=== PATIENT | female | born 2000 | race Native Hawaiian/Other Pacific Islander ===

== ENCOUNTER 2021-09-04 16:54 | Emergency (ER) | payer OTHER ==
[~2021-09-04] VITALS: Ht 157 cm; Wt 72.0 kg
--- NOTE | 2021-09-04 17:14 | ED Upper Extremity ---
General Chief Complaint: Upper Extremity Stated Complaint: L ARM/WRIST PAIN FELL Nursing Triage Note: PT AMB TO TRIAGE CO OF R WRIST PAIN, PT FELL ON WRIST ON WEDNESDAY Source: patient Exam Limitations: no limitations (LORI STEWART APRN) History of Present Illness Date Seen by Provider: Sep 04, 2021 Time Seen by Provider: 17:12 Initial Comments To ER by EMS from home with reports of right wrist pain worse with flexion and extension as well as right elbow pain worse with flexion and extension ever since she fell landing on this 48 hours ago. Onset: just prior to arrival Severity: moderate Pain/Injury Location: right elbow, right wrist Method of Injury: fell Modifying Factors: Worse With Movement (LORI STEWART APRN) Allergies and Home Medications Allergies Coded Allergies: No Known Drug Allergies (Unverified , 09/04/21) Patient Home Medication List Home Medication List Reviewed: Yes (LORI STEWART APRN) Review of Systems Constitutional: see HPI EENTM: see HPI Respiratory: no symptoms reported Cardiovascular: no symptoms reported Genitourinary: no symptoms reported Musculoskeletal: see HPI Skin: no symptoms reported Psychiatric/Neurological: No Symptoms Reported (LORI STEWART APRN) Past Rouizsu-Slavrc-Lnmnzt Hx Patient Social History Tobacco Use?: No Substance use?: No Alcohol Use?: No Pt feels they are or have been: No (LORI STEWART APRN) Physical Exam Vital Signs Vital Signs - First Documented 09/04/21 17:00 Temp 36.8 Pulse 68 Resp 18 B/P (MAP) 134/87 (103) Pulse Ox 96 (LIZ SOTO MD) Vital Signs Capillary Refill : Less Than 3 Seconds (LORI STEWART APRN) Height, Weight, BMI Height: '" Weight: lbs. oz. kg; 29.00 BMI Method: General Appearance: WD/WN, no apparent distress HEENT: PERRL/EOMI, normal ENT inspection Respiratory: no respiratory distress, no accessory muscle use Gastrointestinal: normal bowel sounds, non tender Shoulder: normal inspection, non-tender Elbow/Forearm: normal inspection, Right, limited ROM Wrist: Yes normal inspection, Yes pain, Yes soft tissue tenderness Hand: normal inspection, non-tender Neurologic/Psychiatric: alert, normal mood/affect, oriented x 3 Skin: normal color, warm/dry (LORI STEWART APRN) Progress/Results/Core Measures Results/Orders Blood Pressure Mean: 103 Departure Impression Primary Impression: Contusion of wrist Disposition: 01 HOME, SELF-CARE Condition: Stable Departure-Patient Inst. Decision time for Depature: 17:14 (LORI STEWART APRN) Referrals: NO,LOCAL PHYSICIAN (PCP/Family) Primary Care Physician Patient Instructions: Wrist Sprain (DC) Add. Discharge Instructions: 1. Tylenol and ibuprofen for pain follow-up with your doctor next week All discharge instructions reviewed with patient and/or family. Voiced understanding. ATTENDING PHYSICIAN NOTE: I was physically present as attending physician in the emergency department during the care of this patient, but I was not directly involved in the decision making or delivery of care for this patient. (LIZ SOTO MD) LORI STEWART APRN Sep 04, 2021 17:14 LIZ SOTO MD Sep 05, 2021 11:18
--- NOTE | 2021-09-04 17:30 | Diagnostic Imaging Report ---
WRIST, RIGHT, 3 VIEWS OR MORE COMPARISON: None available. INDICATION: Right wrist pain after fall TECHNIQUE: PA, oblique and lateral views FINDINGS: No fracture or traumatic malalignment. No radiopaque foreign body. Joint spaces are well-maintained. IMPRESSION: 1. No acute fracture or malalignment. Dictated by: Dictated on workstation # [id number]
--- NOTE | 2021-09-04 17:33 | Diagnostic Imaging Report ---
INDICATION: Right elbow pain after fall. COMPARISON: None available. TECHNIQUE: 3 views of the right elbow. FINDINGS: Alignment is normal. No acute fracture. No elbow joint effusion. No radiopaque foreign body. IMPRESSION: No acute fracture about the right elbow. Dictated by: Dictated on workstation # [id number]
[2021-09-04 17:49] VITALS: BP 134/87
== END 2021-09-04 17:51 | disposition home or self-care (01) ==
LOC: ER 16:57
DX: S60.211A Contusion of right wrist, initial encounter (principal); W18.30XA Fall on same level, unspecified, initial encounter
CPT/HCPCS: 73080; 73110